=== PATIENT | male | born 1980 | race African-American/Black ===

== ENCOUNTER 2021-10-07 07:11 | Emergency (ER) | payer OTHER ==
[2021-10-07 08:07] VITALS: BP 156/88; PULSE 70; RESP 20; BMI 25.1
[2021-10-07] MEDS ORDERED: TETRACAINE 0.5% HCL 0.6ML DROPPER.BOTTLE OS ONE (09:13)
[2021-10-07] MEDS ORDERED: TETRACAINE 0.5% OPHTH SOLN 2 ML BOTTLE ONE (09:18)
[2021-10-07] MEDS ORDERED: FLUORESCEIN NA 1 EA STRIP ONE (09:18)
[2021-10-07] MEDS ORDERED: CLINDAMYCIN HCL 150 MG CAPSULE (FP) PO ONE (09:47)
[2021-10-07] MEDS ORDERED: CIPROFLOXACIN HCL 0.3% OPHTH 2.5ML BOTTLE OS ONE (09:48)
[2021-10-07] MEDS ORDERED: DIPHTH,PERTUSS(ACELL),TET 0.5 ML DISP.SYRIN IM ONE (09:51)
== END 2021-10-07 10:30 | disposition home or self-care (01) ==
LOC: JER 07:11
PROC: 3E0234Z Introduction of Serum, Toxoid and Vaccine into Muscle, Percutaneous Approach (ICD-10-PCS; principal; 2021-10-07)
DX: S05.92XA Unspecified injury of left eye and orbit, initial encounter (principal); Y04.0XXA Assault by unarmed brawl or fight, initial encounter
CPT/HCPCS: 70450-TC; 70486-TC; 99284-25